=== PATIENT | male | born 1990 | race Caucasian/White ===

== ENCOUNTER → 2022-02-06 10:03 | Outpatient (CLI) | payer OTHER, SELFPAY ==
--- NOTE | ~2022-02-06 | XR_ITS ---
EXAMINATION: XR elbow RT min 3V DATE: 02/06/2022 10:17 INDICATION: Right elbow pain. TECHNIQUE: 4 views of right elbow were obtained. COMPARISON: None. FINDINGS: Bone alignment is normal. No fracture. Joint spaces are well maintained. There is no elbow joint effusion. IMPRESSION: 1. Normal right elbow. Reviewed, dictated and finalized at location A. RAL MANAGER IMPRESSION: 1. Normal right elbow.
== END ==
PROVIDERS: PCP Family Medicine; Visit Provider Physician Assistant Medical
DX: M25.521 Pain in right elbow (principal)
CPT/HCPCS: 73080

== ENCOUNTER 2022-09-30 06:59 | Outpatient (CLI) | payer OTHER, SELFPAY ==
--- NOTE | ~2022-09-30 | MR_ITS ---
EXAMINATION: MR elbow RT wo con DATE: 09/30/2022 07:33 INDICATION: Worsening lateral right elbow pain TECHNIQUE: Magnetic resonance imaging (MRI) of the right elbow was performed without intravenous cont rast. Sequences included coronal, axial, and sagittal PD-weighted FS FSE and coronal, axial, and sagi ttal PD-weighted FSE. COMPARISON: None FINDINGS: Osseous/other: Normal alignment. Normal marrow signal with no marrow edema, fracture or pathologic marrow replacing process. Articular cartilage appears normal. Tendons: Triceps, biceps brachii and brachialis tendons are normal. Common flexor tendon wad is normal. Moder ate tendinopathy and partial-thickness tear involving up to one third of the cross-sectional area of the central lateral epicondylar origin of the common extensor tendon wad. Ligaments: The medial collateral ligament complex is normal. There is a partial tear involving the posterior two thirds of the humeral side of the lateral collateral ligament. The lateral ulnar collateral ligament and annular ligament components of the lateral collateral ligament complex appear to remain intact. Cubital tunnel: Cubital tunnel is unremarkable with normal signal and caliber of the ulnar nerve. Fluid: Small elbow joint effusion. IMPRESSION: 1. Partial tear of the lateral ulnar collateral ligament. 2. Moderate tendinopathy and partial tear of the insertion of the common extensor tendon wad. Reviewed, dictated and finalized at location A. IMPRESSION: 1. Partial tear of the lateral ulnar collateral ligament. 2. Moderate tendinopathy and partial tear of the insertion of the common extens or tendon wad.
== END 2022-09-30 07:00 ==
LOC: MICIMG 07:00
PROVIDERS: PCP Family Medicine; Visit Provider Nurse Practitioner
DX: M77.11 Lateral epicondylitis, right elbow (principal); S53.441A Ulnar collateral ligament sprain of right elbow, initial encounter; X58.XXXA Exposure to other specified factors, initial encounter
CPT/HCPCS: 73221

== ENCOUNTER 2022-10-28 00:52 | Day surgery (SDC) | payer OTHER, SELFPAY ==
[2022-10-16 14:09] VITALS: BMI 30.5
--- NOTE | 2022-10-16 14:28 | PC.NURSE ---
Report to the Outpatient Waiting Room, entrance under the green pavilion located off [facility], at 0630 on 10/28/22. Planned Procedure Time: 0830. Time changes happen often and if your time is changed the preop area will call you the afternoon before. - You and your visitor will be asked to self-screen and do not enter if you have any COVID symptoms. - A mask is optional within the hospital at this time. Patients may have clear liquids (water, carbonated beverages, clear teas, apple juice) until 3 hours prior to surgery with a maximum of 20 ounces. - No food from midnight until time of surgery Take the following medications with a SIP of water the morning of surgery: n/a DO NOT STOP ANY OF YOUR OTHER PRESCRIPTION MEDICATIONS PRIOR TO SURGERY ?EXCEPT THE FOLLOWING Medications to discontinue per physician n/a Date to take last dose n/a Please no make-up, nail uruguayan, hairspray, perfume, deodorant, or body powder the day of surgery. No jewelry (including any body piercings) or valuables the day of surgery, leave them at home. Please take a shower or bath the night before, or the morning of, surgery with an antibacterial soap. Wear comfortable, loose fitting clothing. - Jewelry must be removed prior to entering the operating room. Rings and piercings that are not removed may be cut off. - The hospital will not accept responsibility for valuables. - Please leave all valuables, including medications, at home the day of surgery. If you are going home after surgery, a licensed fuel truck driver must drive you home. - NO public transportation without another adult if you receive anesthesia. - We recommend that an adult stay with you for 24 hours following discharge. - We also recommend that you do not drive, make important decision, drink alcoholic beverages, or take any drugs that were not prescribed by your health care provider for at least 24 hours after your discharge time. Follow any additional instructions given to you from your surgeon. If you or anyone in your household have experienced Covid symptoms in the past week, please notify your surgeon or the nurse liaison at the phone number below for possible testing. Telephone instructions given to patient and asked if any additional questions and then verbalized understanding. Patient advised to call surgeon office or pre surgery nurse liaison [phone] if any additional questions.
[2022-10-28] VITALS (7 sets, daily range): BP systolic 119–126; BP diastolic 60–81; PULSE 49–54; RESP 12–16; TEMP 36.2; O2SAT 100
[2022-10-28] MEDS: ACETAMINOPHEN 500 MG TABLET 1000 MG PO (07:00)
[2022-10-28] MEDS: LACTATED RINGERS 1,000 ML 30 ML IV CONT (07:05)
[2022-10-28] MEDS: KETOROLAC 15 MG/ML VIAL (*BKC) IV PUSH (07:08)
--- NOTE | 2022-10-28 07:25 | WPDANESEPPF ---
Anes - Initial Pre Proc Eval Procedure: Operation Date: 10/28/22 08:30 Proposed Procedures p Debridement Right Lateral Epicondyle - Madhu Francois MD Date/Time: 10/28/22 07:25 Surgeon: Madhu Francois MD Pre Op Diagnosis: Rt Lateral Epicondylitis Patient Data Age: 32 Gender: M Height: 1.83 m Weight: 102.4 kg Allergies Allergy/AdvReac Type Severity Reaction Status Date / Time No Known Allergies Allergy Verified 10/28/22 07:11 Home Medications Medication Instructions Recorded Confirmed Type No Home Medications 02/06/22 10/28/22 History Patient hx anesthesia problems: none Family hx anesthesia problems: none Results Review: All pre-operative results and documents have been reviewed as part of the pre-operative evaluation. [facility] Past Medical History Medical History Deviated septum Right lateral epicondylitis Surgical History Surgical History History of appendectomy History of back surgery fatty tumors removed History of nasal septoplasty History of surgery on arm left humerus History of thoracic surgery reconstructive surgery Family History Family History Mother Hypertension Father Hypertension Social History Social History Smoking status: Former smoker Tobacco type: smokeless tobacco Smokeless tobacco user: chewing tobacco Second hand tobacco smoke exposure: No Smoking end date: 10/16/14 Alcohol intake: current Drinks per week: 5 Substance use: never Substance use type: does not use Lack of Transportation: No Lack of Food: Never True Current Housing: I Have Housing Concerned About Future Housing: No Difficulty Paying Gas/Electric Bills: No Difficulty Paying for Meds: No Currently Unemployed: No Education: Bachelor's Degree Difficulty w/ Childcare or Family Care: No Living arrangements: with family Occupation/Education: occupation 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 Gender identity (if verbalized by the patient): Male Spiritual care concerns: No Agree to blood products: Yes Anes - Eval Final PreProcedure Day of Procedure 10/28/22 07:25 Patient weight: overweight Heart: regular rate and rhythm Lungs: clear to auscultation Airway: Mallampati scale class II Neurological: alert and oriented Last oral intake: >/= 8 hours ASA classification: II Emergent: no Anesthetic plan: proceed Anesthesia type and monitoring: general LMA and standard monitoring Results Review: All pre-operative results and documents have been reviewed as part of the pre-operative evaluation. Informed Consent: The patient's anesthetic plan and its attendant risks and benefits were discussed with the patient/family/POA. Questions were solicited and answers provided to the satisfaction of the patient/family/POA.
[2022-10-28] MEDS: ceFAZolin 2 GM/D5W 50 ML 2 GM/50 ML BAG IVPB (07:38)
--- NOTE | 2022-10-28 08:34 | WPDHPUPDATE1 ---
History and Physical Update Update Date/Time: 10/28/22 08:34 History and Physical has been reviewed, including an updated exam of the patient. There are NO changes in the patient's condition. Risks, benefits, and alternatives have been discussed and questions answered. Patient agrees to proceed with procedure.
--- NOTE | 2022-10-28 09:39 | P.OP_ITS ---
Procedure Note - Detailed Date of Procedure 10/28/22 Pre-op Diagnosis Rt Lateral Epicondylitis Post-op Diagnosis Same Procedure Performed Right lateral epicondylar debridement with partial epicondylectomy Surgeon Madhu Francois MD Mobile Therapist Demetri Anesthesia General Description of Procedure The patient was identified and proper site identified. Taken to the operating room and transferred to the OR table placed him supine taking care to pad his torso and extremities. After general anesthetic induction and intubation a nonsterile tourniquet was placed high in the right arm. The right upper extremity was prepped and draped in usual sterile fashion. A longitudinal incision was made over the common extensor origin and tendons. Subcutaneous tissue was sharply dissected down to the deep fascia. Care was taken to protect neurovascular structures and hemostasis carried out throughout the procedure the common extensor origin was released off the epicondyle then divided longitudinally between the fibers of the tendon. The degenerative portion of tendon was removed being careful not to disrupt the origin of the LUCL. Once this had been debrided the wound was irrigated with sterile saline. Tendon edges were reapproximated [id number] with 4-0 Monocryl. Several cc of 0.25% Marcaine and epinephrine solution was infiltrated into the subcutaneous and peritendinous tissues. Skin edges reapproximated with three 0 V lock and then tissue adhesive used for the skin. Sterile dressing was applied. Tourniquet was released. Patient tolerated the procedure well. He was awakened, extubated taken recovery in stable condition. There were no known intraoperative complications. He received preoperative antibiotics. Estimated Blood Loss 1 Tourniquet Time 26 Drains No Packing No Pathology None sent Complications No immediate complications Condition Stable Disposition PACU [facility] Billing Surgery - Charge Forward: Surgery Billing ([id number])
[2022-10-28] MEDS: fentaNYL CITRATE INJ (*CRX) 100 MCG/2 ML VIAL 25 MCG IV PUSH (09:53)
[2022-10-28] MEDS: oxyCODONE HCL (*CRX) 5 MG TAB IR PO (10:35)
== END 2022-10-28 11:50 | disposition home or self-care (01) ==
PROVIDERS: PCP Family Medicine; Visit Provider Orthopaedic Surgery
PROC: (CPT 24110; principal; 2022-10-28 08:30)
DX: M77.11 Lateral epicondylitis, right elbow (principal); F17.220 Nicotine dependence, chewing tobacco, uncomplicated
CPT/HCPCS: 24359; A9270; J0690; J1100; J1885; J2250; J2405; J2704; J3010; J7120